=== PATIENT | female | born 1995 | race Caucasian/White ===

== ENCOUNTER 2019-12-15 21:37 | Emergency (ER) | payer OTHER, MEDICAID ==
[~2019-12-15] VITALS: Ht 154.9 cm; Wt 47.2 kg
[~2019-12-15 21:37] MED LIST: ACYCLOVIR 400400 MG PO; CIPRO500 MG PO
[2019-12-15 22:18] LABS: ABSOLUTE LYMPHOCYTES 1.3 thou/uL (0.8-5.3); ABSOLUTE MONOCYTES 1.2 thou/uL (0.0-1.2); ABSOLUTE NEUTROPHILS 13.9 thou/uL (1.6-8.1); BASOPHILS 0.2 %; EOSINOPHILS 0.1 %; HEMATOCRIT 42.2 % (37.0-47.0); HEMOGLOBIN 14.2 gm/dL (12.0-15.0); LYMPHOCYTES 8.2 %; MCH 29.6 pg (26.0-34.0); MCHC 33.6 g/dL (28.0-37.0); MCV 88.1 fL (80.0-100.0); MONOCYTES 7.2 %; MPV 8.9 fl. (7.2-11.1); NUCLEATED RBCS 0 /100WBC; PLATELET COUNT* 250 thou/uL (150-400); POLYS 84.3 %; RBC 4.79 mil/uL (4.20-5.00); RDW-CV 13.4 % (10.5-14.5); WBC 16.4 thou/uL (4.0-11.0)
[2019-12-15 22:19] LABS: URINE BILIRUBIN NEGATIVE (Negative); URINE BLOOD TRACE (Negative); URINE CLARITY CLEAR; URINE COLOR DARK YELLOW; URINE GLUCOSE-RANDOM NEGATIVE (Negative); URINE KETONES NEGATIVE (Negative); URINE LEUKOCYTES-REFLEX NEGATIVE (Negative); URINE NITRITE-REFLEX NEGATIVE (Negative); URINE PROTEIN TRACE (Negative); URINE SPECIFIC GRAVITY 1.025 (1.005-1.030); URINE UROBILINOGEN 0.2 E.U./dl (0.2-1.0)
[2019-12-15 22:25] LABS: CALCIUM 9.4 mg/dL (8.5-10.1); POTASSIUM 3.7 mmol/L (3.5-5.1)
[2019-12-15 22:29] LABS: ALBUMIN 4.7 g/dL (3.4-5.0); TOTAL BILIRUBIN 1.5 mg/dL (<0.1-1.0); TOTAL PROTEIN 8.1 g/dL (6.4-8.2)
[2019-12-15 22:29] LABS: AMP/METHAMP Negative (Negative); BARBITURATES Negative (Negative); BENZODIAZEPINES Negative (Negative); COCAINE Negative (Negative); METHADONE Negative (Negative); OPIATES POSITIVE (Negative); PCP Negative (Negative); THC POSITIVE (Negative)
[2019-12-16 00:15] LABS: SALICYLATE 4.1 mg/dL (2.8-20.0)
[2019-12-16 00:23] LABS: ACETAMINOPHEN < 2 ug/mL (10-30)
[2019-12-16 00:25] VITALS: BP 119/74
== END 2019-12-16 00:26 | disposition home or self-care (01) ==
LOC: M.ERS 21:37
PROVIDERS: Emergency Medicine
DX: F32.9 Major depressive disorder, single episode, unspecified (principal); F17.210 Nicotine dependence, cigarettes, uncomplicated; Z88.8 Allergy status to other drugs, medicaments and biological substances; Z79.899 Other long term (current) drug therapy

== ENCOUNTER 2020-01-16 19:16 | Emergency (ER) | payer MEDICAID ==
[~2020-01-16] VITALS: Ht 154.9 cm; Wt 44.0 kg
[2020-01-16 19:23] VITALS: BP 120/66
[2020-01-16] MEDS ORDERED: NORCO 5-325 TA1 EAC2 PO (19:48)
[2020-01-16] MEDS ORDERED: DIFLUCAN150 MG PO (19:48)
[2020-01-16] MEDS ORDERED: BACTRIM DS TAB1 EACH PO (19:48)
== END 2020-01-16 19:52 | disposition home or self-care (01) ==
LOC: M.ERS 19:16
DX: N64.4 Mastodynia (principal); Z48.01 Encounter for change or removal of surgical wound dressing; F17.210 Nicotine dependence, cigarettes, uncomplicated; Z88.8 Allergy status to other drugs, medicaments and biological substances